=== PATIENT | female | born 1990 | race Caucasian/White ===

== ENCOUNTER 2017-12-17 00:37 | Emergency (ER) | payer SELFPAY ==
[2017-12-17 00:45] VITALS: BP 142/77; BMI 44.4
--- NOTE | 2017-12-17 01:05 | DR.GENAD ---
HPI - PCP Primary Care Physician: ARON - HPI Comment HPI Comment: POSITIVE LOC. STILL NOT QUITE HERSELF. - Complaint/Symptoms Chief Complaint Doctors Comments: FELL/HEADACHE AND VOMITING SINCE. RIGHT SHOULDER PAIN ALSO. Chief Complaint:: PT FELL AT WORK APPROX 1 HOUR AGO AND HIT BACK OF HEAD ON THE FLOOR; WITNESSES SAY PT BLACKED OUT AND WOULD NOT RESPOND; PT HAS BEEN VOMITING SINCE FALL Self Treatment fo Chief Complaint: NO MEDS SINCE FALL - Nurses notes reviewed Nurses Notes Review: Yes - Source History Provided: Patient - Mode of Arrival Mode of Arrival: Ambulatory - Timing Onset of Chief Complaint: 12/17/17 Came on: Suddenly - Duration Duration: Constant Duration: Hours - Severity Severity: Moderate PMH - PMH Past Medical History: No Past Surgical History: Yes Surgical History: Tonsillectomy - Family History History of Family Medical Conditions: No - Social History Alcohol Use: None Do you use any recreational Drugs:: No Lives With: Family Lives Where: Home - infectious screening In the last 2 months have you had wt loss of >10#?: NO Have you had fever, night sweats or hemotysis?: No Have you traveled outside the country in the last 6 months?: No Isolation: Standard ROS - Review of Systems Constitutional: No Symptoms Reported Eyes: No Symptoms Reported ENTM: No Symptoms Reported Respiratoy: No Symptoms Reported Cardiovascular: No Symptoms Reported Gastrointestinal/Abdominal: No Symptoms Reported Genitourinary: No Symptoms Reported Neurological: No Symptoms Reported Musculoskeletal: Right, Shoulder (PAIN.) Integumentary: No Symptoms Reported Hematologic/Lymphatic: No Symptoms Reported Endocrine: No Symptoms Reported All Other Systems: Reviewed and Negative PE - Vital Signs Vitals: Temperature 98.3 F Pulse Rate 96 Respiratory Rate 18 Blood Pressure 142/77 O2 Sat by Pulse Oximetry 100 - General Limitations: No Limitations General Appearance: Alert - Head Head Exam: Normal Inspection - Eyes Eye exam: Normal Appearance - ENT ENT Exam: Normal External Ear Exam External Ear Exam: Normal External Inspection TM/Canal Exam: Bilateral Normal Nose Exam: Normal Nose Exam Mouth Exam: Normal Inspection Throat Exam: Normal Inspection - Neck Neck Exam: Trachea Midline. negative: Tenderness - Chest Chest Inspection: Symmetric Chest Wall Rise - Respiratory Respiratory Exam: Normal Lung Sounds Bilat Respiratory Exam: Bilateral Clear to Auscultation - Cardiovascular Cardiovascular Exam: Regular Rate, Normal Rhythm, Normal Heart Sounds - Abdominal Exam Abdominal Exam: Normal Bowel Sounds, Soft. negative: Tenderness - Extremities Extremities Exam: Tenderness (RT SHOULDER TENDER. FAYE.) - Back Back Exam: Normal Inspection - Neurologic Neurological Exam: Alert, CN II-XII Intact. negative: Motor Sensory Deficit - Psychiatric Psychiatric Exam: Normal Affect, Normal Mood - Skin Skin Exam: Normal Color MDM - Differential Diagnosis Differential Diagnosis: HEAD TRAUMA, RT SHOULDER SPRAIN, HEADACHE Course - Treatment Treatment: SEE ORDERS. - Education/Counseling Education/Counseling: Patient, Education Educated On: Diagnosis, Needs for Follow Up ROR - XRAY XRAY Interpreted by: Radiologist XRAY Findings: REPORT DISCUSS WITH PATIENT. - Diagnosis Discharge Problem: Headache Qualifiers: Headache type: post-traumatic Headache chronicity pattern: acute headache Intractability: not intractable Qualified Code(s): G44.319 - Acute post- traumatic headache, not intractable Head trauma Qualifiers: Encounter type: initial encounter Qualified Code(s): S09.90XA - Unspecified injury of head, initial encounter Sprain of right shoulder Qualifiers: Encounter type: initial encounter Shoulder sprain type: unspecified sprain Qualified Code(s): S43.401A - Unspecified sprain of right shoulder joint, initial encounter - Discharge Plan Condition: Stable Prescriptions: Ibuprofen [MOTRIN TAB 800 MG *] 800 mg PO Q8H PRN #30 tab PRN Reason: Pain/Inflammation - Follow ups/Referrals Follow ups/Referrals: N[facility],None [Primary Care Provider] - 3 days - Instructions Instructions: Shoulder Sprain, Head Injury, Adult, [id number] Additional Instructions: RETURN TO ED IF WORSE.
--- NOTE | 2017-12-17 01:57 | CT ---
CT head without contrast Indication: Pain after fall Technique: Axial images from the skullbase to the vertex without contrast. Coronal and sagittal refor mats provided. Findings: Mucosal retention cyst seen in the right paranasal sinuses. Remaining sinuses clear. No oss eous lesions seen. There is no acute intracranial hemorrhage, mass or mass effect. No extra-axial flu id collection identified. Ventricles and sulci are normal. Impression: No acute intracranial hemorrhage. Reported By:
[2017-12-17] MEDS ORDERED: TORADOL TAB PO ONE ×2 (02:31→02:33)
--- NOTE | 2017-12-17 05:51 | RAD ---
Examination: Right shoulder, three views History: Fell Findings: There is no evidence for fracture, dislocation or articular deformity. The humeral head is in normal position. The AC joint is preserved. Impression: No acute injury demonstrated. Reported By:
== END 2017-12-17 02:38 | disposition home or self-care (01) ==
LOC: ER 00:37
DX: S09.8XXA Other specified injuries of head, initial encounter (principal); G44.319 Acute post-traumatic headache, not intractable; S43.401A Unspecified sprain of right shoulder joint, initial encounter; W19.XXXA Unspecified fall, initial encounter; Y92.69 Other specified industrial and construction area as the place of occurrence of the external cause
CPT/HCPCS: 70450; 73030; 99282; 99283